=== PATIENT | male | born 1950 | race African-American/Black ===

== ENCOUNTER 2019-01-15 23:30 | Emergency (ER) | payer MEDICARE ==
[~2019-01-15] VITALS: Ht 182.9 cm; Wt 61.2 kg
[~2019-01-15 23:30] MED LIST: FUROSEMIDE20 M1 ORAL; GLIPIZIDE-METF1 EAC2 PO; K-TAB10 MEQ PO; METOPROLOL SUCC25 MG ORAL; OMEPRAZOLE20 M3 ORAL; SIMVASTATIN40 MG ORAL; WARFARIN SODIUM5 MG ORAL; ZOFRAN4 M3 ORAL
[2019-01-15 23:45] VITALS: BP 139/98
--- NOTE | 2019-01-15 23:45 | NUR ---
ED Nurse Note: Patient was BIBA from home due to hypoglycemia. Stated that today at the morning paramedics were at his house and gave him glucagon due to same reason. Patient presented stable, BS 140, VSS at this time, AAOx4, skin is dry warm to touch, breating is even non-labored.
[2019-01-16 00:41] LABS: HEMATOCRIT 46.6 % (42.0-52.0); HEMOGLOBIN 15.1 G/DL (14.2-18.0); MEAN CORPUSCULAR VOLUME 86 FL (80-99); PLATELET COUNT 185 K/UL (150-450); RED BLOOD COUNT 5.42 M/UL (4.70-6.10); RED CELL DISTRIBUTION WIDTH 13.4 % (11.6-14.8)
[2019-01-16 00:51] LABS: ANION GAP 9 mmol/L (5-15); BLOOD UREA NITROGEN 32 mg/dL (7-18); CALCIUM 9.9 MG/DL (8.5-10.1); CARBON DIOXIDE 28 MMOL/L (21-32); CHLORIDE 103 MMOL/L (98-107); CREATININE 2.9 MG/DL (0.55-1.30); POTASSIUM 5.3 MMOL/L (3.5-5.1); SODIUM 140 MMOL/L (136-145)
[2019-01-16 01:01] LABS: INR 6.1 (0.9-1.1)
--- NOTE | 2019-01-16 02:02 | Emergency Room Report ---
History of Present Illness General Chief Complaint: Abnormal Labs Source: Patient Present Illness HPI This is a 68-year-old male with a history of diabetes, A. fib, hypertension who presents with altered mental status from low blood sugar. He was confused diaphoretic and shaky. called 911. EMS had blood sugar was in the 40s. He received amp of D50. He is back to baseline. He had gallbladder surgery 2 weeks ago. Since then he has decreased appetite and loss about 5 to 10 pounds. He still take normal amount of his metformin/glipizide combination. He has decreased appetite. Did not eat much for dinner. No other complaint. No pain. No chest pain. No nausea no vomiting. Only had increased dosage of his Coumadin. Allergies: Coded Allergies: No Known Allergies (Unverified , 01/16/19) Patient History Past Medical History: see triage record, old chart reviewed, DM, HTN, AFib Past Surgical History: other Pertinent Family History: none Social History: Denies: smoking Immunizations: other Reviewed Nursing Documentation: PMH: Agreed; PSxH: Agreed Nursing Documentation-PMH Past Medical History: No History, Except For Hx Hypertension: Yes Hx Diabetes: Yes Review of Systems Eye: Denies: eye pain, blurred vision ENT: Denies: ear pain, nose congestion, throat swelling Respiratory: Denies: cough, shortness of breath Cardiovascular: Denies: chest pain, palpitations Gastrointestinal: Denies: abdominal pain, diarrhea, nausea, vomiting Musculoskeletal: Denies: back pain, joint pain Skin: Denies: rash Neurological: Denies: headache, numbness Endocrine: Denies: increased thirst, increased urine Hematologic/Lymphatic: Denies: easy bruising All Other Systems: negative except mentioned in HPI Physical Exam Vital Signs Date Time Temp Pulse Resp B/P (MAP) Pulse Ox O2 Delivery O2 Flow Rate FiO2 01/15/19 23:17 98.2 75 16 139/98 (112) 98 Room Air Was unremarkable Sp02 EP Interpretation: reviewed, normal General Appearance: well appearing, no apparent distress, alert Head: normocephalic, atraumatic Eyes: bilateral eye PERRL, bilateral eye EOMI ENT: hearing grossly normal, normal pharynx Neck: full range of motion, supple, no meningismus Respiratory: chest non-tender, lungs clear, normal breath sounds Cardiovascular #1: regular rate, rhythm, no murmur Gastrointestinal: normal bowel sounds, non tender, no mass, no organomegaly, no bruit, non-distended Musculoskeletal: back normal, gait/station normal, normal range of motion Psychiatric: mood/affect normal Medical Decision Making Diagnostic Impression: Primary Impression: Hypoglycemia Additional Impression: Supratherapeutic INR ER Course Pt with hypoglycemia. I suspect that the weight loss caused him to have less need for diabetic medication. He is eating drinking here. No evidence of active bleeding. Will discharge home. Creatinine is at baseline. Last Vital Signs Date Time Temp Pulse Resp B/P (MAP) Pulse Ox O2 Delivery O2 Flow Rate FiO2 01/15/19 23:45 98.2 16 139/98 98 Room Air 01/15/19 23:17 75 Status: improved Disposition: HOME, SELF-CARE Condition: Stable Referrals: [facility] (PCP) Additional Instructions: Cut down on your diabetes medication to half a tablet twice a day. Stop your warfarin for 2 days. Then continue with your daily dosing. Follow-up as scheduled on Tuesday for recheck on your [place] level. Call your doctor for follow up in 3-5 days. Return if worse. Bartolo Greer MD Jan 16, 2019 02:02
--- NOTE | 2019-01-16 02:30 | NUR ---
ED Nurse Note: Patient's BS dropped criticaly low, 50% dextrose, cookies,and juice were provided.
[2019-01-16] MEDS ORDERED: D5 1/2NS 1,000 ML IV SCH (02:45)
[2019-01-16] MEDS ORDERED: Dextrose 10% 1,000 ML IV SCH (06:45)
--- NOTE | 2019-01-16 07:13 | NUR ---
ED Nurse Note: REPORT GIVEN TO RN OF [facility] ROOM IS [id number] SDU.
--- NOTE | 2019-01-16 07:19 | NUR ---
ED Nurse Note: RECEIVED PT RESTING ON BED WITH RUNNING D 10. BS CHECK 90. COLLECTED URINE THEN SENT.
[2019-01-16 07:24] VITALS: BP 128/80
--- NOTE | 2019-01-16 07:43 | NUR ---
ED Nurse Note: REPORT GIVEN TO BR[place]FORD OF [facility]. PT TRANSPORTED VIA GURNEY WITH ALL BELONGINGS SENT.
[2019-01-16 07:44] LABS: APPEARANCE,URINE CLEAR; BILIRUBIN, URINE NEGATIVE (NEGATIVE); GLUCOSE, URINE (UA) NEGATIVE (NEGATIVE); KETONES,URINE NEGATIVE (NEGATIVE); LEUKOCYTE ESTERASE ,URINE 1+ (NEGATIVE); NITRITE,URINE NEGATIVE (NEGATIVE); PH,URINE 5 (4.5-8.0); PROTEIN,URINE 1+ (NEGATIVE); UROBILINOGEN,URINE NORMAL MG/DL (0.0-1.0)
[2019-01-16 07:45] VITALS: BP 128/80
[2019-01-16 07:47] LABS: COLOR,URINE YELLOW
== END 2019-01-16 07:45 | disposition home or self-care (01) ==
LOC: EDBD 23:30 → EMR 23:59
DX: E11.649 Type 2 diabetes mellitus with hypoglycemia without coma (principal); R79.1 Abnormal coagulation profile; I10 Essential (primary) hypertension
CPT/HCPCS: 36415; 80048; 81001; 85025; 85610; 85730; 96360; 99284